=== PATIENT | female | born 1990 | race Caucasian/White ===

== ENCOUNTER 2017-12-10 07:49 | Inpatient (IN) | payer BC ==
[~2017-12-10] VITALS: Ht 162.6 cm; Wt 78.0 kg
[2017-12-10] MEDS ORDERED: LACTATED RINGERS 1,000 ML IV SCH (07:53)
[2017-12-10] MEDS ORDERED: OXYTOCIN 30U/ 0.9% NaCL 500ML 500 ML IV ONE (07:53)
[2017-12-10] MEDS ORDERED: NEWBORN KIT ONE (07:54)
[2017-12-10] MEDS ORDERED: MISOPROSTOL 200 MCG TABLET ONE (07:55)
[2017-12-10] MEDS ORDERED: LIDOCAINE/PF 1%, 30ML ONE (07:55)
[2017-12-10] MEDS ORDERED: OXYTOCIN 30U/ 0.9% NaCL 500ML 500 ML ONE (07:55)
[2017-12-10] MEDS ORDERED: PREN1TAB60 PO (07:58)
[2017-12-10] MEDS ORDERED: PLEASE ENTER ALLERGIES MC SCH (08:00)
[2017-12-10] MEDS ORDERED: ONDANSETRON 2MG/ML, 2ML IVPush PRN (08:00)
[2017-12-10] MEDS ORDERED: PLEASE ENTER HEIGHT AND WEIGHT MC SCH (08:00)
[2017-12-10] MEDS ORDERED: FENTANYL PF 100 MCG/2ML IVPush PRN (08:00)
[2017-12-10] MEDS ORDERED: FENTANYL PF 100 MCG/2ML IV PRN (08:00)
[2017-12-10] MEDS: OXYTOCIN 30U/ 0.9% NaCL 500ML 500 ML IV SCH ×2 (08:40→18:54)
[2017-12-10] MEDS: PRENATAL VIT/IRON/FA 1 EACH TABLET PO SCH (09:00)
[2017-12-10] MEDS ORDERED: CALCIUM CARBONATE 500 MG TAB.CHEW PO PRN (09:00)
[2017-12-10] MEDS ORDERED: ONDANSETRON 2MG/ML, 2ML IV PRN (09:00)
[2017-12-10] MEDS ORDERED: ACETAMINOPHEN 325 MG TABLET PO PRN (09:00)
[2017-12-10] MEDS ORDERED: CARBOPROST TROMETHAMINE 250 MCG/ML, 1ML IM PRN (09:00)
[2017-12-10] MEDS ORDERED: MISOPROSTOL 200 MCG TABLET PR PRN (09:00)
[2017-12-10] MEDS ORDERED: METHYLERGONOVINE 0.2 MG/ML IM PRN (09:00)
[2017-12-10] MEDS ORDERED: HYDROcodone/APAP 5/325 TABLET PO PRN (09:00)
[2017-12-10] MEDS ORDERED: IBUPROFEN 600 MG TABLET ONE (09:02)
[2017-12-10] MEDS: IBUPROFEN 600 MG TABLET PO PRN ×2 (09:06→20:31)
[2017-12-10 10:41] LABS: MEAN CORPUSCULAR HEMOGLOBIN 31.7 pg (27.0-34.8); MEAN CORPUSCULAR HGB CONC 33.5 g/dL (32.4-35.8); MEAN CORPUSCULAR VOLUME 94.9 fL (80-100); MEAN PLATELET VOLUME 7.7 fL (7.4-10.4); PLATELET COUNT 243 x10^3/uL (130-400); RED BLOOD COUNT 4.26 x10^6/uL (3.82-5.3); RED CELL DISTRIBUTION WIDTH 14.3 % (9.6-15.2)
[2017-12-10 11:06] LABS: BASOPHILS # (AUTO) 0.01 x10^3/uL (0-0.1); BASOPHILS % (AUTO) 0 % (0-1); EOSINOPHILS # (AUTO) 0.01 x10^3/uL (0-0.4); EOSINOPHILS % (AUTO) 0 % (1-7); LYMPHOCYTES % (AUTO) 5 % (22-44); MD SCAN; MONOCYTES # (AUTO) 0.44 x10^3/uL (0.2-0.8); MONOCYTES % (AUTO) 2 % (2-9); NEUTROPHILS % (AUTO) 93 % (42-75)
[2017-12-10 11:40] VITALS: BP 110/68
[2017-12-10] MEDS: HYDROcodone/APAP 5/325 TABLET PO PRN (13:34)
[2017-12-10 16:33] LABS: BASOPHILS # (AUTO) 0.03 x10^3/uL (0-0.1); BASOPHILS % (AUTO) 0 % (0-1); EOSINOPHILS # (AUTO) 0.03 x10^3/uL (0-0.4); EOSINOPHILS % (AUTO) 0 % (1-7); LYMPHOCYTES # (AUTO) 1.73 x10^3/uL (1-3.4); LYMPHOCYTES % (AUTO) 11 % (22-44); MD NO; MEAN CORPUSCULAR HEMOGLOBIN 32.4 pg (27.0-34.8); MEAN CORPUSCULAR HGB CONC 34.4 g/dL (32.4-35.8); MEAN CORPUSCULAR VOLUME 94.4 fL (80-100); MEAN PLATELET VOLUME 7.4 fL (7.4-10.4); MONOCYTES # (AUTO) 1.13 x10^3/uL (0.2-0.8); MONOCYTES % (AUTO) 7 % (2-9); NEUTROPHILS # (AUTO) 13.31 x10^3/uL (1.8-6.8); NEUTROPHILS % (AUTO) 82 % (42-75); PLATELET COUNT 234 x10^3/uL (130-400); RED BLOOD COUNT 3.92 x10^6/uL (3.82-5.3)
[2017-12-10 16:34] VITALS: BP 102/64
[2017-12-10 20:25] VITALS: BP 119/72
[2017-12-10] MEDS: DOCUSATE 100 MG CAPSULE PO PRN (20:30)
[2017-12-11 00:06] VITALS: BP 100/64
[2017-12-11 04:40] VITALS: BP 101/68
[2017-12-11] MEDS: OXYTOCIN 30U/ 0.9% NaCL 500ML 500 ML IV SCH (04:54)
[2017-12-11 06:50] VITALS: BP 100/67
[2017-12-11] MEDS: DOCUSATE 100 MG CAPSULE PO PRN (07:26)
[2017-12-11] MEDS: IBUPROFEN 600 MG TABLET PO PRN (07:26)
[2017-12-11] MEDS: PRENATAL VIT/IRON/FA 1 EACH TABLET PO SCH (07:28)
[2017-12-11] MEDS: HYDROcodone/APAP 5/325 TABLET PO PRN ×2 (07:55→10:15)
== END 2017-12-11 10:30 | disposition home or self-care (01) | DRG 774 ==
LOC: LDOP 07:49 → LDIP 07:59 → 2NW 10:43
PROVIDERS: ADMIT Obstetrics & Gynecology; ATTEND Obstetrics & Gynecology
PROC: 10E0XZZ Delivery of Products of Conception, External Approach (ICD-10-PCS; principal; 2017-12-10)
DX: O44.03 Complete placenta previa NOS or without hemorrhage, third trimester (principal); O69.1XX0 Labor and delivery complicated by cord around neck, with compression, not applicable or unspecified; Z37.0 Single live birth; Z3A.41 41 weeks gestation of pregnancy; Z80.3 Family history of malignant neoplasm of breast
CPT/HCPCS: 36415; 82803; 85025; 86850; 86900; G0378; J2590